=== PATIENT | female | born 1985 | race Caucasian/White ===

== ENCOUNTER 2017-09-19 17:51 | Emergency (ER) | payer BC ==
[~2017-09-19] VITALS: Ht 154.9 cm; Wt 60.8 kg
--- OUTSIDE RECORDS SUMMARY | 2017-09-19 17:54 | XMS REPORT ---
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 Problem Name Problem Code Onset Date Status Entry Date Provider Comment Standard Description Annotate 8 weeks gestation of V28.9 Active Luz Maria Arnold MD Encounter for unspecified screening of mother care; other, first trimester V22.1 Active Luz Maria Arnold MD Supervision of other normal , missed 632 Active Aubrey Larson MD Missed Overweight Active Aubrey Larson MD Overweight Less than 8 weeks gestation of V28.9 Active Aubrey Larson MD Encounter for unspecified screening of mother Supervision of normal multigravida , first trimester V22.1 Active Aubrey Larson MD Supervision of other normal Hx of , spontaneous 634.90 Active Shalini Hernandez MD Spontaneous , unspecified, without mention of complication Hx of dilation and curettage V45.89 Active Shalini Hernandez MD Other postsurgical status Spotting per vagina in , unspecified trimester 649.53 Active Aubrey Larson MD Spotting complicating , antepartum condition or complication Rh factor negative, antepartum, second trimester 656.13 Active Aubrey Larson MD Rhesus isoimmunization affecting management of mother, antepartum condition or complication Rubella antibody low - not immune 795.79 Active Aubrey Larson MD Other and unspecified nonspecific immunological findings Hives 708.9 Inactive Shalini Hernandez MD Unspecified urticaria V24.2 Inactive Shalini Hernandez MD Routine follow-up 32 weeks gestation of V28.9 Inactive Shalini Hernandez MD Encounter for unspecified screening of mother 34 weeks gestation of V28.9 Inactive Shalini Hernandez MD Encounter for unspecified screening of mother 36 weeks gestation of V28.9 Inactive Shalini Hernandez MD Encounter for unspecified screening of mother 38 weeks gestation of ICD-V28.9 Inactive Aubrey Larson MD 30 weeks gestation of ICD-V28.9 Inactive Shalini Hernandez MD 28 weeks gestation of ICD-V28.9 Inactive Aubrey Larson MD 25 weeks gestation of ICD-V28.9 Inactive Aubrey Larson MD care, third trimester ICD-V22.1 Inactive Aubrey Larson MD 18 weeks gestation of ICD-V28.9 Inactive Aubrey Larson MD Supervision of normal multigravida , second trimester ICD-V22.1 2015 Inactive Aubrey Larson MD 14 weeks gestation of ICD-V28.9 Inactive Aubrey Larson MD Routine screening ultrasound ICD-V28.3 Inactive Aubrey Larson MD Supervision of normal multigravida , second trimester ICD-V22.1 2015 Inactive Aubrey Larson MD 38 weeks gestation of V28.9 Resolved Aubrey Larson MD Encounter for unspecified screening of mother 30 weeks gestation of V28.9 Resolved Shalini Hernandez MD Encounter for unspecified screening of mother 28 weeks gestation of V28.9 Resolved Aubrey Larson MD Encounter for unspecified screening of mother 25 weeks gestation of V28.9 Resolved Aubrey Larson MD Encounter for unspecified screening of mother care, third trimester V22.1 Resolved Aubrey Larson MD Supervision of other normal 18 weeks gestation of V28.9 Resolved Aubrey Larson MD Encounter for unspecified screening of mother Supervision of normal multigravida , second trimester V22.1 Resolved Aubrey Larson MD Supervision of other normal 14 weeks gestation of V28.9 Resolved Aubrey Larson MD Encounter for unspecified screening of mother Routine screening ultrasound V28.3 Resolved Aubrey Larson MD Encounter for routine screening for malformation using ultrasonics of mother Supervision of normal multigravida , second trimester V22.1 Resolved Aubrey Larson MD Supervision of other normal Medication List Medication Instructions Start Date Stop Date Generic Name NDC Status Provider Patient Instruction MISOPROSTOL 200 MCG ORAL TABLET 4 tabs per vagina Every 6 hours x 2 doses MISOPROSTOL 76847974404 Active Aubrey Larson MD Active MACROBID 100 MG ORAL CAPSULE 1 tab By Mouth Twice a Day x 5 days NITROFURANTOIN MONOHYD MACRO 18218426219 Active Aubrey Larson MD Active DICLEGIS 10-10 MG ORAL TABLET DELAYED RELEASE 2 tablets at night, and 1 tablet in the morning and 1 tab in the afternoon as needed for nausea DOXYLAMINE-PYRIDOXINE 49113072314 Active Aubrey Larson MD Active VITAFOL GUMMIES 3.33-0.333-34.8 MG ORAL TABLET CHEWABLE 3 gummies By Mouth Every Day VIT-FE [id number] 11151229441 Active Aubrey Larson MD Active HYDROCORTISONE 2.5 % EXTERNAL CREAM apply to body area not face Twice a Day prn HYDROCORTISONE 2.5 % EXTERNAL CREAM 243036 HYDROCORTISONE Inactive MACROBID 100 MG ORAL CAPSULE 1 By Mouth Twice a Day x 5d MACROBID 100 MG ORAL CAPSULE 8146705 NITROFURANTOIN MONOHYD MACRO Inactive MEDROL DOSE PACK as directed per package instructions MEDROL DOSE PACK Inactive ZYRTEC ALLERGY 10 MG ORAL TABLET 1 By Mouth qd ZYRTEC ALLERGY 10 MG ORAL TABLET 0709319 CETIRIZINE HCL Inactive VITAFOL ULTRA 29-0.6-0.4-200 MG ORAL CAPSULE 1 By Mouth qd 10/10 VITAFOL ULTRA 29-0.6-0.4-200 MG ORAL CAPSULE PRENAT-FE POLY-METHFOL- FA-DHA Inactive TERAZOL 3 0.8 % VAGINAL CREAM in vagina take at bedtime 7n 10/10 TERAZOL 3 0.8 % VAGINAL CREAM 347418 TERCONAZOLE Inactive AUGMENTIN 875-125 MG ORAL TABLET 1 By Mouth mbid x 7d AUGMENTIN 875-125 MG ORAL TABLET 234935 AMOXICILLIN-POT CLAVULANATE Inactive HYDROCORTISONE 2.5 % EXTERNAL CREAM apply to body area not face Twice a Day prn HYDROCORTISONE 62958053864 No Longer Active Aubrey Larson MD Active MACROBID 100 MG ORAL CAPSULE 1 By Mouth Twice a Day x 5d NITROFURANTOIN MONOHYD MACRO 72605884111 No Longer Active Aubrey Larson MD Active MEDROL DOSE PACK as directed per package instructions MEDROL DOSE PACK No Longer Active Aubrey Larson MD Active ZYRTEC ALLERGY 10 MG ORAL TABLET 1 By Mouth qd CETIRIZINE HCL 90020568769 No Longer Active Aubrey Larson MD Active VITAFOL ULTRA 29-0.6-0.4-200 MG ORAL CAPSULE 1 By Mouth qd 10/10 PRENAT-FE [id number] 13082735289 No Longer Active Aubrey Larson MD Active TERAZOL 3 0.8 % VAGINAL CREAM in vagina take at bedtime 7n 10/10 TERCONAZOLE 83637030696 No Longer Active Aubrey Larson MD Active AUGMENTIN 875-125 MG ORAL TABLET 1 By Mouth mbid x 7d AMOXICILLIN-POT CLAVULANATE 32121127137 No Longer Active Aubrey Larson MD Active Immunizations Vaccine Administration Date Value Standard Description Tetanus toxoid, reduced diphtheria toxoid and acellular Pertussis vaccine, absorbed (TdaP) given given tetanus toxoid, reduced diphtheria toxoid, and acellular pertussis vaccine, adsorbed Vital Signs Date Name Value Unit Range Description blood pressure, diastolic 86 mm[Hg] BP waite blood pressure, systolic 132 mm[Hg] BP sys height E&M 61 [in_us] Bdy height pulse rate E&M 80 /min Heart rate respiratory rate E&M 17 /min Resp rate temperature E&M 98.8 [degF] Body temperature weight E&M 131.50 [lb_av] Weight Measured blood pressure, diastolic 89 mm[Hg] BP waite blood pressure, systolic 134 mm[Hg] BP sys height E&M 61 [in_us] Bdy height pulse rate E&M 89 /min Heart rate respiratory rate E&M 22 /min Resp rate temperature E&M 97.8 [degF] Body temperature weight E&M 142.50 [lb_av] Weight Measured blood pressure, diastolic 90 mm[Hg] BP waite blood pressure, systolic 132 mm[Hg] BP sys height E&M 61 [in_us] Bdy height pulse rate E&M 91 /min Heart rate temperature E&M 99 [degF] Body temperature weight E&M 142 [lb_av] Weight Measured Diagnostic Results Date Name Value Unit Range Description Lab Report: AFP Tetra, CBC With Differential/Platelet - Lab dimeric inhibition A, multiples of median 0.71 (?) {MoM} Lab Report: CBC With Differential/Platelet, ABO Grouping and Rho(D) Typi ... - Hematology lymphocyte count, blood, automated 2.2 X10E3/UL 10*3/mm3 0.7- 3.1 Office Visit: Return Visit S10 - Urinalysis pH, urine, semiquantitative 6.0 bilirubin, urine negative Lab Report: [id number] 7+Alc-Unbund, Amphetamine Confirmation, Ur, [id number] 7+ ... - Hematology hemoglobin solubility test Negative Negative Lab Report: CBC With Differential/Platelet, ABO Grouping and Rho(D) Typi ... - Hematology mean corpuscular volume, RBC 85 fL 79-97 Lab Report: AFP Tetra, CBC With Differential/Platelet - Chemistry human chorionic gonadotropin, total, serum 55814 m[iU]/mL Lab Report: CBC With Differential/Platelet, ABO Grouping and Rho(D) Typi ... - Hematology erythrocyte (RBC) count 4.35 X10E6/UL 10*6/mm3 3.77-5.28 platelet count 229 X10E3/UL 10*3/mm3 150-379 Office Visit: Return Visit S10 - Urinalysis appearance, urine clear Office Visit: Initial Visit / RM# 1 - Serology HIV-1/HIV-2 Ab, serum negative Lab Report: CBC With Differential/Platelet, ABO Grouping and Rho(D) Typi ... - Hematology red blood cell distribution width 14.4 % 12.3-15.4 Lab Report: Gestational Glucose Tolerance - Chemistry blood glucose, 3 hours after glucose tolerance test 142 mg/dL 65 -139 Lab Report: CBC With Differential/Platelet, ABO Grouping and Rho(D) Typi ... - Hematology eosinophils as percent of blood leukocytes 2 % Not Estab. Office Visit: Return Visit S10 - Urinalysis glucose, urine, semiquantitative negative Lab Report: CBC With Differential/Platelet, ABO Grouping and Rho(D) Typi ... - Chemistry Absolute Neutrophils 4.6 X10E3/UL 10*3/uL 1.4-7.0 Lab Report: [id number] 7+Alc-Unbund, Amphetamine Confirmation, Ur, [id number] 7+ ... - Toxicology amphetamine screen, urine Positive Xspgnw=[id number] Lab Report: [id number] 7+Alc-Unbund, Amphetamine Confirmation, Ur, [id number] 7+ ... - Hematology hemoglobin F 0.0 % 0.0-2.0 Lab Report: CBC With Differential/Platelet, ABO Grouping and Rho(D) Typi ... - Hematology basophil count, absolute 0.0 x10E3/uL 0.0-0.2 Lab Report: CBC With Differential/Platelet, ABO Grouping and Rho(D) Typi ... - Chemistry hepatitis B surface antigen Negative Negative Lab Report: [id number] 7+Alc-Unbund, Amphetamine Confirmation, Ur, [id number] 7+ ... - Toxicology phencyclidine screen, urine Negative ng/mL Cutoff=25 Lab Report: CBC With Differential/Platelet, ABO Grouping and Rho(D) Typi ... - Hematology monocytes as percent of blood leukocytes 6 % Not Estab. Office Visit: Return Visit S10 - Urinalysis nitrite, urine, semiquantitative negative Lab Report: [id number] 7+Alc-Unbund, Amphetamine Confirmation, Ur, [id number] 7+ ... - Toxicology opiate screen, urine Negative Mhxlog=475 Lab Report: Pap IG, rfx HPV ASCU - Lab Human Papillomavirus test result HPVNotTested Lab Report: [id number] 7+Alc-Unbund, Amphetamine Confirmation, Ur, [id number] 7+ ... - Hematology hemoglobin A2 2.6 % 0.7-3.1 Lab Report: CBC With Differential/Platelet, ABO Grouping and Rho(D) Typi ... - Urinalysis urine culture MUG Lab Report: CBC With Differential/Platelet, ABO Grouping and Rho(D) Typi ... - Hematology mean corpuscular hemoglobin concentration, RBC 34.8 G/DL % 31.5- 35.7 hemoglobin, blood 12.8 g/dL 11.1-15.9 Office Visit: Return Visit S10 - Urinalysis leukocyte esterase, urine, by dipstick negative Lab Report: CBC With Differential/Platelet, ABO Grouping and Rho(D) Typi ... - Hematology leukocyte count, blood 7.4 X10E3/UL 10*3/mm3 3.4-10.8 Lab Report: AFP Tetra, CBC With Differential/Platelet - Chemistry human chorionic gonadotropin, total, serum, multiples of median 0.77 (?) {MoM} Office Visit: Return Visit S10 - Urinalysis protein, urine, semiquantitative (dipstick) trace Lab Report: CBC With Differential/Platelet, ABO Grouping and Rho(D) Typi ... - Hematology hematocrit, blood 36.8 % 34.0-46.6 Lab Report: CBC With Differential/Platelet, ABO Grouping and Rho(D) Typi ... 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 - Toxicology barbiturates screen, urine Negative Mwkhzt=648 Lab Report: [id number] 7+Alc-Unbund, Amphetamine Confirmation, Ur, [id number] 7+ ... - Hematology hemoglobin A 97.4 % 94.0-98.0 Lab Report: CBC With Differential/Platelet, ABO Grouping and Rho(D) Typi ... - Serology rubella antibody, serum, IgG 1.40 Immune >0.99 Office Visit: Return Visit S10 - Urinalysis urobilinogen, urine, semiquantitative (dipstick) negative Lab Report: CBC With Differential/Platelet, ABO Grouping and Rho(D) Typi ... - Hematology basophils as percent of blood leukocytes 0 % Not Estab. monocyte count, blood, automated 0.4 X10E3/UL 10*3/uL 0.1-0.9 Lab Report: CBC With Differential/Platelet, ABO Grouping and Rho(D) Typi ... - Chemistry immature granulocytes, percentage of total cells, blood 0 % Not Estab. Lab Report: Gestational Glucose Tolerance - Chemistry blood glucose, 60 minutes after glucose tolerance test 141 mg/dL 65-179 Lab Report: AFP Tetra, CBC With Differential/Platelet - Chemistry unconjugated estriol 1.16 NG/ML m[iU]/mL Lab Report: CBC With Differential/Platelet, ABO Grouping and Rho(D) Typi ... - Hematology lymphocytes as percent of blood leukocytes 29 % Not Estab. Lab Report: AFP Tetra, CBC With Differential/Platelet - Chemistry alpha-1 fetoprotein, maternal ,serum, multiples of median 1.49 (? ) {MoM} Lab Report: CBC With Differential/Platelet, ABO Grouping and Rho(D) Typi ... - Blood bank Rh antibody Negative Negative Lab Report: CBC With Differential/Platelet, ABO Grouping and Rho(D) Typi ... - Serology rapid plasma reagin antibody, serum Non Reactive Non Reactive Lab Report: Ct, Ng, Trich vag by SALTY - Lab chlamydia DNA probe Negative Negative Lab Report: Ct, Ng, Trich vag by SALTY - Microbiology Neisseria gonorrhoeae DNA probe Negative Negative Lab Report: Gestational Glucose Tolerance - Chemistry blood glucose, fasting 80 mg/dL 65-94 Internal Other: - Chemistry beta HCG, urine, semiquantitative positive Lab Report: [id number] 7+Alc-Unbund, Amphetamine Confirmation, Ur, [id number] 7+ ... - Hematology hemoglobin C 0.0 % 0.0 Office Visit: Return Visit S10 - Urinalysis ketones, urine, by test strip negative Lab Report: CBC With Differential/Platelet, ABO Grouping and Rho(D) Typi ... - Hematology Eosinophil Absolute Count 0.2 X10E3/UL 10*3/uL 0.0-0.4 Office Visit: Return Visit S10 - Urinalysis specific gravity, urine 1.010 Lab Report: [id number] 7+Alc-Unbund, Amphetamine Confirmation, Ur, [id number] 7+ ... - Toxicology benzodiazepine screen, urine Negative Wybnap=840 Lab Report: [id number] 7+Alc-Unbund, Amphetamine Confirmation, Ur, [id number] 7+ ... - Genetics/fertility cystic fibrosis, screen Comment: Lab Report: [id number] 7+Alc-Unbund, Amphetamine Confirmation, Ur, [id number] 7+ ... 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 - Hematology mean corpuscular hemoglobin, RBC 29.4 pg 26.6-33.0 Lab Report: Vaginitis/Vaginosis, DNA Probe - Urinalysis trichomonas vaginalis, urine Negative Negative Lab Report: CBC With Differential/Platelet, ABO Grouping and Rho(D) Typi ... - Hematology neutrophils as percent of blood leukocytes 63 % Not Estab. Lab Report: CBC With Differential/Platelet, RPR, Rfx Qn RPR/Confirm TP, ... - Chemistry blood glucose, 1 hour after 50 gm oral glucose 135 mg/dL 65-139 Lab Report: CBC With Differential/Platelet, ABO Grouping and Rho(D) Typi ... - Blood bank ABO blood group A Office Visit: Return Visit S10 - Urinalysis blood in urine (hemoglobin) by dipstick 2+ Lab Report: AFP Tetra, CBC With Differential/Platelet - Chemistry alpha-fetoprotein interpretation of results *Screen Negative* Lab Report: [id number] 7+Alc-Unbund, Amphetamine Confirmation, Ur, [id number] 7+ ... - Urinalysis Ethanol screen urine Negative Cutoff=0.020 Lab Report: [id number] 7+Alc-Unbund, Amphetamine Confirmation, Ur, [id number] 7+ ... - Hematology hemoglobin S 0.0 % 0.0 Office Visit: Return Visit S10 - Urinalysis urine color yellow Lab Report: AFP Tetra, CBC With Differential/Platelet - Chemistry alpha feto-protein, maternal QUAD screen 68.9 Encounters Date Encounter Provider Code Facility 21:27:39 CDT Est Patient Problem Focus - 30664 Luz Maria Arnold MD CPT-38139 [facility] OB 09:41:26 CDT Est Patient Exp Problem - 87632 Aubrey Larson MD CPT-56176 [facility] [employer] 09:02:16 CDT Est Patient Exp Problem - 48747 Aubrey Larson MD CPT-44855 [facility] [employer] SURVEY[facility] 10:10:39 CDT Est Patient Exp Problem - 04475 Shalini Hernandez MD CPT-41882 [facility] SUR[employer]Y[facility] 18:03:21 CDT Est Patient Exp Problem - 84833 Shalini Hernandez MD CPT-41508 [facility] 08:59:45 CDT Est Patient Exp Problem - 78407 Shalini Hernandez MD CPT-63244 [facility] [facility] 10:41:17 CDT Est Patient Exp Problem - 05241 Shalini Hernandez MD CPT-76796 [facility] [facility] 10:40:36 CDT Est Patient Exp Problem - 68474 Shalini Hernandez MD CPT-12451 [facility] [facility] 09:17:58 CDT Est Patient Exp Problem - 76215 Shalini Hernandez MD CPT-59439 [facility] [facility] 09:17:20 CDT Est Patient Exp Problem - 33065 Shalini Hernandez MD CPT-70083 [facility] [facility] 09:21:54 CDT Est Patient Exp Problem - 43018 Shalini Hernandez MD CPT-22374 [facility] [facility] 08:42:46 CDT Est Patient Exp Problem - 87454 Aubrey Larson MD CPT-97626 [facility] [employer] 15:25:54 CDT New Patient Detailed - 57227 Aubrey Larson MD CPT- 67128 [facility] [employer] Procedures Code Procedure Name Date Entry Date Standard Description CPT-57344 Urinalysis - - In House 21:27:39 CDT CPT-61443 Urinalysis - Dip only - In House 21:27:39 CDT CPT-24394 Urinalysis - Dip only - In House 09:41:27 CDT CPT-21494 Urinalysis - Dip only - In House 09:02:17 CDT CPT-85615 Ultrasound of Uterus- 1st trimester 09:02:16 CDT CPT-77945 TDAP 10:39:24 CDT CPT-08306 OB Ultrasound, detailed 10:40:33 CDT CPT-J2790 Injection, rho d immune globulin, human, full dose, 300 micrograms ( 1500 i.u.) 13:14:17 CDT CPT-09735 Urinalysis - Dip only - In House 08:42:46 CDT CPT-71713 OB Ultrasound, detailed 15:25:55 CDT CPT-42152 Urinalysis - Dip only - In House 15:25:55 CDT
[2017-09-19 18:59] LABS: BASOPHILS % 0.3 % (0.0-1.0); EOSINOPHILS # (AUTO) 0.1 (0.0-0.4); EOSINOPHILS % 1.4 % (0.0-6.0); HEMATOCRIT 37.1 % (34.2-44.1); HEMOGLOBIN 12.9 g/dL (12.0-16.0); LYMPHOCYTES # (AUTO) 1.8 (1.0-3.2); LYMPHOCYTES % 24.8 % (18.0-39.1); MEAN CORPUSCULAR HEMOGLOBIN 29.7 pg (28-32); MEAN CORPUSCULAR HGB CONC 34.8 g/dL (31-35); MEAN CORPUSCULAR VOLUME 85.3 fL (81-99); MONOCYTES # (AUTO) 0.3 (0.2-0.8); MONOCYTES % 4.2 % (4.4-11.3); NEUTROPHILS # (AUTO) 5.1 (2.1-6.9); NEUTROPHILS % 69.2 % (38.7-80.0); PLATELET COUNT 234 x10e3/uL (140-360); RED BLOOD COUNT 4.35 x10e6/uL (3.6-5.1); RED CELL DISTRIBUTION WIDTH 13.6 % (11.7-14.4)
[2017-09-19 19:05] LABS: BILIRUBIN,URINE NEGATIVE (NEGATIVE); COLOR,URINE YELLOW (YELLOW); KETONES,URINE NEGATIVE (NEGATIVE); LEUKOCYTE ESTERASE ,URINE NEGATIVE (NEGATIVE); PROTEIN,URINE DIPSTICK NEGATIVE (NEGATIVE); URINE UROBILINOGEN 0.2 mg/dL (0.2 - 1)
[2017-09-19 19:07] LABS: CLARITY,URINE SL CLOUDY (CLEAR); NITRITE,URINE POSITIVE (NEGATIVE)
[2017-09-19 19:16] LABS: ALANINE AMINOTRANSFERASE 9 IU/L (0-55); ALBUMIN 3.4 g/dL (3.5-5.0); ALKALINE PHOSPHATASE 40 IU/L (40-150); ANION GAP 11.6 mmol/L (8-16); BLOOD UREA NITROGEN 9 mg/dL (7-26); BUN/CREATININE RATIO 13 (6-25); CALCIUM 9.4 mg/dL (8.4-10.2); CARBON DIOXIDE 25 mmol/L (22-29); CHLORIDE 105 mmol/L (98-107); CREATINE KINASE 44 IU/L (29-168); CREATININE, SERUM 0.69 mg/dL (0.57-1.11); EST GLOMERULAR FILTRATION RATE > 60 ML/MIN (60-); GLUCOSE 81 mg/dL (74-118); POTASSIUM 3.6 mmol/L (3.5-5.1); SODIUM 138 mmol/L (136-145)
[2017-09-19 19:20] LABS: BACTERIA,URINE FEW /HPF; EPITHELIAL CELLS,URINE MODERATE /LPF
--- NOTE | 2017-09-19 19:53 | Diagnostic Imaging Report ---
EXAMINATION: CHEST SINGLE (PORTABLE) INDICATION: \S\CHEST PAIN \S\[id number] \S\1925 \S\Y COMPARISON: None FINDINGS: AP view TUBES and LINES: None. LUNGS: Lungs are well inflated. Lungs are clear. There is no evidence of pneumonia or pulmonary edema. PLEURA: No pleural effusion or pneumothorax. HEART AND MEDIASTINUM: The cardiomediastinal silhouette is unremarkable. BONES AND SOFT TISSUES: No acute osseous lesion. Soft tissues are unremarkable. UPPER ABDOMEN: No free air under the diaphragm. IMPRESSION: No acute thoracic abnormality. Signed by: Dr. Trent Okeefe MD on 09/19/2017 7:50 PM
== END 2017-09-19 21:28 | disposition home or self-care (01) ==
LOC: ER 17:51
DX: O26.91 Pregnancy related conditions, unspecified, first trimester (principal); O23.41 Unspecified infection of urinary tract in pregnancy, first trimester; R53.83 Other fatigue
CPT/HCPCS: 36415; 71045; 80053; 81001; 81025; 82550; 82553; 84484; 84702; 85025; 87086; 93005; 99283